=== PATIENT | male | born 1970 | race Caucasian/White ===

== ENCOUNTER 2018-03-03 08:03 | Emergency (ER) | payer BC ==
[2018-03-03 08:51] VITALS: BP 147/68
--- NOTE | 2018-03-03 09:18 | RAD ---
INDICATION: Fall. Rib pain. History of left ninth 10th rib fractures COMPARISON: Left RIBS May 13, 2011 TECHNIQUE: Multiple views of the ribs were obtained. FINDINGS: Bones: There are nondisplaced fractures of the left fourth and fifth ribs. This does not correspond to the site of tenderness is marked on the skin surface which is at the ninth rib level. LUNGS: The lungs are clear. There is no pneumothorax. Pleural spaces: There is no evidence of hemothorax. Other: None IMPRESSION: NONDISPLACED LEFT FOURTH AND FIFTH RIB FRACTURES
--- NOTE | 2018-03-03 09:30 | RAD ---
INDICATION: Left shoulder injury. TECHNIQUE: 4 views of the left shoulder were obtained. FINDINGS: There is a transverse fracture of the clavicle approximately at the junction of the middle and lateral thirds which appears nondisplaced. There is mild inferior angulation of the lateral fragment relative the proximal fragment. No other fractures are seen. In addition there are fractures of the lateral second, third fourth and fifth ribs which are grossly nondisplaced. IMPRESSION: 1. TRANSVERSE SLIGHTLY ANGULATED FRACTURE OF THE LEFT CLAVICLE. 2. FRACTURES OF THE LEFT LATERAL SECOND THROUGH FIFTH RIBS.
[2018-03-03] MEDS ORDERED: HYDROcodone/ACETAMIN 5-325 MG* 1 TAB PO ONE (09:55)
--- NOTE | 2018-03-03 10:04 | UC ---
Shoulder Pain HPI - HPI Summary HPI Summary: 47 yo WM c/o left shoulder pain and left upper chest pain s/p fall from a one- wheeled skateboard, was going fast and the rechargeable battery ran out during the run, fell off skateboard and falling on his left shoulder, now cannot move his left shoulder secondary to severe pain. - History of Current Complaint Chief Complaint: UCUpperExtremity Stated Complaint: LEFT RIBS/SHOULDER PAIN Time Seen by Provider: 03/03/18 08:31 Hx Obtained From: Patient, Family/Operative Supervisor Onset/Duration: Sudden Onset Timing: Constant Severity Initially: Severe Severity Currently: Severe Pain Intensity: 4 Character: Sharp, Throbbing Aggravating Factor(s): Movement Alleviating Factor(s): Nothing Associated Signs And Symptoms: Positive: Negative - Risk Factors Non-Orthopedic Risk Factor: Negative DVT Risk Factors: Negative Septic Arthritis Risk Factor: Negative - Allergies/Home Medications Allergies/Adverse Reactions: Allergies Allergy/AdvReac Type Severity Reaction Status Date / Time No Known Allergies Allergy Verified 03/03/18 08:45 PMH/Surg Hx/FS Hx/Imm Hx Previously Healthy: Yes - Surgical History Surgical History: None - Family History Known Family History: Positive: Unknown - Social History Alcohol Use: Daily Alcohol Amount: 1 beer daily Substance Use Type: None Smoking Status (MU): Never Smoked Tobacco Have You Smoked in the Last Year: No Review of Systems Constitutional: Negative Skin: Negative Eyes: Negative ENT: Negative Respiratory: Negative Cardiovascular: Negative Gastrointestinal: Negative Genitourinary: Negative Motor: Negative Neurovascular: Negative Musculoskeletal: Decreased ROM, Other: - left shoulder pain Neurological: Negative Psychological: Negative All Other Systems Reviewed And Are Negative: Yes Physical Exam Triage Information Reviewed: Yes Appearance: Pain Distress Vital Signs: Initial Vital Signs Temp 36.9 C 03/03/18 08:46 Pulse 72 03/03/18 08:46 Resp 18 03/03/18 08:46 BP 147/68 03/03/18 08:46 Pulse Ox 98 03/03/18 08:46 Vital Signs Reviewed: Yes Eye Exam: Normal Eyes: Positive: Conjunctiva Clear ENT Exam: Normal Dental Exam: Normal Neck exam: Normal Neck: Positive: 1 Respiratory Exam: Normal Cardiovascular Exam: Normal Abdominal Exam: Normal Musculoskeletal: Positive: Strength Limited @, ROM Limited @, Other: - TTP in lateral clavicle and left upper shoulder region, ROM restricted secondary to pain, NVI Neurological Exam: Normal Psychological Exam: Normal Skin Exam: Normal Shoulder Course/Dx - Course Course Of Treatment: XR of left shoulder and left lateral 1/3 clavicular fx and rib XR revealed non displaced 4th and 5th fxCalled ortho office for appt to be seen by orthopedist today in [place] at 1pm - Differential Dx/Diagnosis Provider Diagnoses: left lateral clavicular fracture. left 4th and 5th rib fractures. elevated BP without dx of HTN Discharge - Sign-Out/Discharge Documenting (check all that apply): Discharge/Admit/Transfer - Discharge Plan Condition: Stable Disposition: HOME Prescriptions: oxyCODONE/Acetamin 5/325 MG* [Percocet 5/325 TAB*] 1 tab PO Q6H PRN 5 Days #20 tab MDD 4 PRN Reason: Severe Pain Patient Education Materials: Clavicle Fracture (ED), Rib Fracture in Children ( ED) Referrals: Olivia Scruggs MD [Medical Doctor] - Additional Instructions: Please go to Dr Scruggs's office by 1PM TODAY - Billing Disposition and Condition Condition: STABLE Disposition: HOME
== END 2018-03-03 10:43 | disposition home or self-care (01) ==
LOC: UCCORT 08:03
DX: S42.032A Displaced fracture of lateral end of left clavicle, initial encounter for closed fracture (principal); S22.32XA Fracture of one rib, left side, initial encounter for closed fracture; W18.39XA Other fall on same level, initial encounter; Y93.51 Activity, roller skating (inline) and skateboarding; Y92.9 Unspecified place or not applicable; R03.0 Elevated blood-pressure reading, without diagnosis of hypertension
CPT/HCPCS: 99212; G0463

== ENCOUNTER 2018-10-24 13:40 | Emergency (ER) | payer BC ==
[2018-10-24 15:40] VITALS: BP 165/90
--- NOTE | 2018-10-24 15:44 | UC ---
Throat Pain/Nasal Gabriel HPI - HPI Summary HPI Summary: Pt c/o gradual onset of nasal congestion, sinus pressure and pain x 10 days. - History of Current Complaint Stated Complaint: SORE THROAT Time Seen by Provider: 10/24/18 15:31 Hx Obtained From: Patient Onset/Duration: Gradual Onset, Lasting Days, Still Present, Worse Since - onset Severity: Moderate Pain Intensity: 0 Cough: None Associated Signs & Symptoms: Positive: Sinus Discomfort - Epiglottits Risk Factors Epiglottis Risk Factors: Negative - Allergies/Home Medications Allergies/Adverse Reactions: Allergies Allergy/AdvReac Type Severity Reaction Status Date / Time No Known Allergies Allergy Verified 03/03/18 08:45 PMH/Surg Hx/FS Hx/Imm Hx Previously Healthy: Yes - Surgical History Surgical History: None - Family History Known Family History: Positive: Cardiac Disease - Social History Occupation: Employed Full-time Alcohol Use: Weekly Alcohol Amount: 1 beer daily Substance Use Type: None Smoking Status (MU): Never Smoked Tobacco Have You Smoked in the Last Year: No Review of Systems All Other Systems Reviewed And Are Negative: Yes Constitutional: Positive: Fatigue Skin: Positive: Negative Eyes: Positive: Negative ENT: Positive: Sinus Congestion, Sinus Pain/Tenderness Respiratory: Positive: Negative Cardiovascular: Positive: Negative Gastrointestinal: Positive: Negative Genitourinary: Positive: Negative Motor: Positive: Negative Neurovascular: Positive: Negative Musculoskeletal: Positive: Negative Neurological: Positive: Headache Psychological: Positive: Negative Is Patient Immunocompromised?: No Physical Exam Triage Information Reviewed: Yes Appearance: Ill-Appearing Vital Signs: Initial Vital Signs Temp 98.4 F 10/24/18 15:38 Pulse 87 10/24/18 15:38 Resp 20 10/24/18 15:38 BP 165/90 10/24/18 15:38 Pulse Ox 99 10/24/18 15:38 Vital Signs Reviewed: Yes Eye Exam: Normal ENT: Positive: Nasal congestion, Sinus tenderness Dental Exam: Normal Neck exam: Normal Respiratory Exam: Normal Cardiovascular Exam: Normal Musculoskeletal Exam: Normal Neurological Exam: Normal Psychological Exam: Normal Skin Exam: Normal Throat Pain/Nasal Course/Dx - Differential Dx/Diagnosis Differential Diagnosis/HQI/PQRI: Influenza, Sinusitis, URI Provider Diagnosis: Sinusitis Discharge - Sign-Out/Discharge Documenting (check all that apply): Patient Departure All imaging exams completed and their final reports reviewed: No Studies - Discharge Plan Condition: Stable Disposition: HOME Prescriptions: Amoxicillin PO (*) [Amoxicillin 875 MG (*)] 875 mg PO Q12H #20 tab Patient Education Materials: Sinusitis (ED) Referrals: [facility] [Outside] No Primary Care Phys,NOPCP [Primary Care Provider] - - Billing Disposition and Condition Condition: STABLE Disposition: Home
== END 2018-10-24 15:49 | disposition home or self-care (01) ==
LOC: UCCORT 13:40
DX: J32.9 Chronic sinusitis, unspecified (principal)
CPT/HCPCS: 99212; G0463